=== PATIENT | female | born 1940 | race Caucasian/White ===

== ENCOUNTER 2018-11-30 14:16 | Emergency (ER) | payer BC, MEDICARE ==
[~2018-11-30] VITALS: Ht 160 cm; Wt 110.0 kg
[~2018-11-30 14:16] MED LIST: DICL1TAB2 PO; DILT180C53; LEVO100T PO; LUBI24CA5 PO; PER5325T PO; PRAM0.253 PO; RABE20TA28 PO; ROSU20TA2 PO; TELM80TA9 PO; TIZA2TAB5 PO; TRIA1CAP6 PO; VENL150C2 PO
[2018-11-30 17:04] VITALS: BP 138/66
== END 2018-11-30 17:06 | disposition home or self-care (01) ==
LOC: ER 14:17
DX: M17.12 Unilateral primary osteoarthritis, left knee (principal); M25.552 Pain in left hip; R10.30 Lower abdominal pain, unspecified; I10 Essential (primary) hypertension; K21.9 Gastro-esophageal reflux disease without esophagitis; G89.29 Other chronic pain; F41.9 Anxiety disorder, unspecified; Z98.890 Other specified postprocedural states; Z85.3 Personal history of malignant neoplasm of breast; Z98.41 Cataract extraction status, right eye; Z98.42 Cataract extraction status, left eye; Z90.12 Acquired absence of left breast and nipple; Z98.82 Breast implant status; Z88.1 Allergy status to other antibiotic agents; Z88.8 Allergy status to other drugs, medicaments and biological substances; Z79.899 Other long term (current) drug therapy; W18.39XA Other fall on same level, initial encounter; Y93.89 Activity, other specified; Y92.89 Other specified places as the place of occurrence of the external cause; Y99.8 Other external cause status
CPT/HCPCS: 72192; 73502; 73560; 99284

== ENCOUNTER 2019-02-14 08:09 | Outpatient (CLI) | payer BC, MEDICARE ==
[2019-02-14] VITALS (10 sets, daily range): BP systolic 143–163; BP diastolic 72–91
[~2019-02-14] VITALS: Ht 160 cm; Wt 100.0 kg
[2019-02-14] MEDS ORDERED: regadenoson 0.4mg/5ml syringe IV PRN (09:10)
[2019-02-14] MEDS ORDERED: nitroGLYCERIN 0.4mg SUBLingual tab SL PRN (09:10)
[2019-02-14] MEDS ORDERED: aminophylline 250mg/10ml inj. IV PRN (09:10)
== END 2019-02-14 23:59 | disposition home or self-care (01) ==
LOC: RAD 08:09
PROVIDERS: ATTEND Internal Medicine Cardiovascular Disease
DX: Z01.818 Encounter for other preprocedural examination (principal); R94.39 Abnormal result of other cardiovascular function study; R06.02 Shortness of breath; I10 Essential (primary) hypertension; M19.90 Unspecified osteoarthritis, unspecified site
CPT/HCPCS: 78452; 93017; A9500; J0280; J2785

== ENCOUNTER 2019-02-28 12:54 | Day surgery (SDC) | payer BC, MEDICARE ==
[2019-02-27 15:37] LABS: BASOPHILS # (AUTO) 0.1 X10'3 (0-0.2); BASOPHILS % (AUTO) 1.5 % (0-1); EOSINOPHILS # (AUTO) 0.1 X10'3 (0-0.9); EOSINOPHILS % (AUTO) 2.6 % (0-6); HEMOGLOBIN 12.2 g/dl (12.0-16.0); LYMPHOCYTES # (AUTO) 1.9 X10'3 (1.1-4.8); LYMPHOCYTES % (AUTO) 32.2 % (21-51); MEAN CORPUSCULAR HEMOGLOBIN 29.8 PG (27.0-31.0); MEAN CORPUSCULAR HGB CONC 33.1 g/dL (33.0-36.5); MEAN CORPUSCULAR VOLUME 89.8 FL (78-98); MEAN PLATELET VOLUME 7.3 FL (7.4-10.4); MONOCYTES # (AUTO) 0.4 X10'3 (0-0.9); MONOCYTES % (AUTO) 7.5 % (2-12); NEUTROPHILS # (AUTO) 3.2 X10'3 (1.8-7.7); NEUTROPHILS % (AUTO) 56.2 % (42-75); PLATELET COUNT 308 X10'3 (140-440); RED BLOOD COUNT 4.12 X10'6 (4.20-5.60); RED CELL DISTRIBUTION WIDTH 14.9 % (11.5-14.5); WHITE BLOOD COUNT 5.8 X10'3 (4.5-11.0)
[2019-02-27 15:51] LABS: ALBUMIN 3.8 G/DL (3.4-5.0); ANION GAP 6 (8-16); BLOOD UREA NITROGEN 19 MG/DL (7-18); BUN/CREATININE RATIO 28.8 (6.6-38.0); CALCIUM 9.2 MG/DL (8.5-10.1); CHLORIDE 103 MMOL/L (99-107); CREATININE 0.66 MG/DL (0.40-0.90); GLUCOSE 125 MG/DL (70-104); POTASSIUM 3.8 MMOL/L (3.5-5.1); SODIUM 141 MMOL/L (135-145); TOTAL CARBON DIOXIDE 31.6 MMOL/L (24-32); eGFR 87 ML/MIN
[2019-02-27 15:52] LABS: PARTIAL THROMBOPLASTIN TIME 26 SECONDS (22-32)
[~2019-02-28] VITALS: Ht 160 cm; Wt 45.4 kg
[2019-02-28] VITALS (10 sets, daily range): BP systolic 142–192; BP diastolic 74–88
[2019-02-28] MEDS ORDERED: LORazepam 0.5 MG tablet PO PRN (13:20)
[2019-02-28] MEDS ORDERED: diphenhydrAMINE 25mg capsule PO PRN (13:20)
[2019-02-28] MEDS ORDERED: normal saline 1,000 ML IV SCH (13:20)
[2019-02-28] MEDS ORDERED: nitroGLYCERIN-Tridil 50MG/D5W 250 ML IV ONE (13:35)
[2019-02-28] MEDS ORDERED: midazolam 2 mg/2 ml injection ONE (13:35)
[2019-02-28] MEDS ORDERED: verapamil 2.5 mg/ml inj IV ONE ×2 (13:35→16:29)
[2019-02-28] MEDS ORDERED: LIDOcaine 1% (10mg/ml)w/preservative injection 20ml MDV ONE (13:36)
[2019-02-28] MEDS ORDERED: heparin 1,000unit/ml 10ml vial 10 ML ONE (13:36)
[2019-02-28] MEDS ORDERED: iohexol 350MG/ML 100ml bottle IV ONE (13:36)
[2019-02-28] MEDS ORDERED: iohexol 350 MG/ML 50ML vial IV ONE (13:36)
[2019-02-28] MEDS ORDERED: fentaNYL/PF 50MCG/1 ML 2ML syringe ONE (13:36)
[2019-02-28] MEDS ORDERED: ACET-2119 PO (14:52)
[2019-02-28] MEDS ORDERED: FEBU40TA PO (14:52)
[2019-02-28] MEDS ORDERED: LACT1CAP65 PO (14:52)
[2019-02-28] MEDS ORDERED: LICO1POW PO (14:52)
[2019-02-28] MEDS ORDERED: TELM80TA2 PO (14:52)
[2019-02-28] MEDS ORDERED: DULCOLAX STOOL SOFT PO (14:52)
[2019-02-28] MEDS ORDERED: OMEG1CAP46 PO (14:52)
[2019-02-28] MEDS ORDERED: PRAM0.122 PO (14:52)
[2019-02-28] MEDS ORDERED: MAXI VISION PO (14:52)
[2019-02-28] MEDS ORDERED: ZEAX100P PO (14:52)
[2019-02-28] MEDS ORDERED: VITA400C65 PO (14:52)
[2019-02-28] MEDS ORDERED: RABE20TA18 PO (14:52)
[2019-02-28] MEDS ORDERED: UBID100C16 PO (14:52)
[2019-02-28] MEDS ORDERED: BLAC40CA PO (14:52)
[2019-02-28] MEDS ORDERED: [UNRECOGNIZED DRUG - CODE] PO (14:52)
[2019-02-28] MEDS ORDERED: CALC-729 PO (14:52)
[2019-02-28] MEDS ORDERED: ASCO-261 PO (14:52)
[2019-02-28] MEDS ORDERED: CHOL400T PO (14:52)
[2019-02-28] MEDS ORDERED: ARTHROTEC PO (14:52)
[2019-02-28] MEDS ORDERED: GABA-532 PO (14:53)
[2019-02-28] MEDS ORDERED: oxyCODONE/APAP 5-325mg tablet PO ONE (14:55)
[2019-02-28] MEDS ORDERED: HYDROmorphone 1 mg/ml syringe ONE (16:29)
== END 2019-02-28 20:00 | disposition home or self-care (01) ==
LOC: SSTAY O 12:54
PROVIDERS: ATTEND Internal Medicine Cardiovascular Disease
DX: R94.39 Abnormal result of other cardiovascular function study (principal); I25.10 Atherosclerotic heart disease of native coronary artery without angina pectoris; I10 Essential (primary) hypertension; E78.5 Hyperlipidemia, unspecified; Z79.01 Long term (current) use of anticoagulants; M16.12 Unilateral primary osteoarthritis, left hip; E03.9 Hypothyroidism, unspecified; K21.9 Gastro-esophageal reflux disease without esophagitis; F32.9 Major depressive disorder, single episode, unspecified; Z90.12 Acquired absence of left breast and nipple; Z85.3 Personal history of malignant neoplasm of breast; Z98.890 Other specified postprocedural states; Z79.899 Other long term (current) drug therapy
CPT/HCPCS: 36415; 80048; 85025; 85610; 85730; 93005; 93458; 99152; 99153; C1769; C1894; J1170; J1644; J2001; J2250; J3010; J7030; Q0163; Q9967; A4620; A5120; A6258; J3490

== ENCOUNTER 2022-02-24 16:19 | Emergency (ER) | payer BC, MEDICARE ==
[~2022-02-24] VITALS: Ht 160 cm; Wt 100.0 kg
[~2022-02-24 16:19] MED LIST changes: +ACET-2119 PO; +ARTHROTEC PO; +ASCO-261 PO; +BLAC40CA PO; +CALC-729 PO; +CHOL400T PO; -DICL1TAB2 PO; +DULCOLAX STOOL SOFT PO; +FEBU40TA PO; +GABA-532 PO; +LACT1CAP65 PO; +LICO1POW PO; +MAXI VISION PO; +OMEG1CAP46 PO; +PRAM0.122 PO; -PRAM0.253 PO; +RABE20TA18 PO; -RABE20TA28 PO; +RABE20TA31 PO; +TELM80TA2 PO; +TIZA-189 PO; -TIZA2TAB5 PO; -TRIA1CAP6 PO; +TRIA1CAP88 PO; +UBID100C16 PO; -VENL150C2 PO; +VENL150C4 PO; +VITA-288 PO; +ZEAX100P PO; +[UNRECOGNIZED DRUG - CODE] PO
--- NOTE | 2022-02-24 18:29 | NUR ---
Assumed care of patient after recieving report. Sitting up in chair, states cold like symptoms started on Sunday antd tested positive today for Covid.
[2022-02-24] MEDS ORDERED: BEBTELOVIMAB 175 MG/2 ML VIAL IV ONE (19:10)
[2022-02-24 21:21] VITALS: BP 143/71
== END 2022-02-24 21:22 | disposition home or self-care (01) ==
LOC: ER 16:20
DX: U07.1 COVID-19 (principal); K21.9 Gastro-esophageal reflux disease without esophagitis; I10 Essential (primary) hypertension; G89.29 Other chronic pain; M54.9 Dorsalgia, unspecified; F41.9 Anxiety disorder, unspecified; Z98.890 Other specified postprocedural states; Z90.49 Acquired absence of other specified parts of digestive tract; Z88.1 Allergy status to other antibiotic agents; Z88.8 Allergy status to other drugs, medicaments and biological substances; Z88.6 Allergy status to analgesic agent; Z79.899 Other long term (current) drug therapy; Z79.82 Long term (current) use of aspirin; Z79.1 Long term (current) use of non-steroidal anti-inflammatories (NSAID); Z79.2 Long term (current) use of antibiotics
CPT/HCPCS: 87502; 87503; 87635; 99283; C9803; M0222; Q0222; 99284

== ENCOUNTER 2022-09-21 06:11 | Day surgery (SDC) | payer BC, MEDICARE ==
[2022-09-20 15:44] LABS: BASOPHILS # (AUTO) 0.1 X10'3 (0-0.2); EOSINOPHILS # (AUTO) 0.2 X10'3 (0-0.9); EOSINOPHILS % (AUTO) 4.4 % (0-6); HEMATOCRIT 34.6 % (35.0-45.0); HEMOGLOBIN 11.7 g/dl (12.0-16.0); LYMPHOCYTES # (AUTO) 1.7 X10'3 (1.1-4.8); LYMPHOCYTES % (AUTO) 31.9 % (21-51); MEAN CORPUSCULAR HEMOGLOBIN 30.6 PG (27.0-31.0); MEAN CORPUSCULAR HGB CONC 33.7 g/dL (33.0-36.5); MEAN CORPUSCULAR VOLUME 90.9 FL (78-98); MEAN PLATELET VOLUME 8.1 FL (7.4-10.4); MONOCYTES # (AUTO) 0.5 X10'3 (0-0.9); MONOCYTES % (AUTO) 9.1 % (2-12); NEUTROPHILS # (AUTO) 2.9 X10'3 (1.8-7.7); NEUTROPHILS % (AUTO) 53.6 % (42-75); PLATELET COUNT 207 X10'3 (140-440); RED BLOOD COUNT 3.81 X10'6 (4.20-5.60); RED CELL DISTRIBUTION WIDTH 13.1 % (11.5-14.5); WHITE BLOOD COUNT 5.3 X10'3 (4.5-11.0)
[2022-09-20 15:50] LABS: ALBUMIN 3.8 G/DL (3.4-5.0); ANION GAP 5 (8-16); BLOOD UREA NITROGEN 25 MG/DL (7-18); BUN/CREATININE RATIO 29.1 (10.0-20.0); CALCIUM 9.6 MG/DL (8.5-10.1); CHLORIDE 99 MMOL/L (99-107); CREATININE 0.86 MG/DL (0.40-0.90); GLUCOSE 105 MG/DL (70-104); SODIUM 135 MMOL/L (135-145); TOTAL CARBON DIOXIDE 30.6 MMOL/L (24-32); eGFR 63 ML/MIN
[2022-09-20 15:54] LABS: APTT 27 SECONDS (22-32)
[2022-09-21] VITALS (10 sets, daily range): BP systolic 122–163; BP diastolic 55–84
[~2022-09-21] VITALS: Ht 160 cm; Wt 102.7 kg
[2022-09-21] MEDS ORDERED: LORazepam 0.5 MG tablet PO PRN ×3 (06:35→09:30)
[2022-09-21] MEDS ORDERED: diphenhydrAMINE 25mg capsule PO PRN ×3 (06:35→09:30)
[2022-09-21] MEDS ORDERED: normal saline 1,000 ML IV SCH ×3 (06:35→09:30)
[2022-09-21] MEDS ORDERED: nitroGLYCERIN-Tridil 50MG/D5W 250 ML IV ONE (07:13)
[2022-09-21] MEDS ORDERED: LIDOcaine 1% (10mg/ml) 2ml vial ONE (07:13)
[2022-09-21] MEDS ORDERED: fentaNYL/PF 50MCG/1 ML 2ML syringe ONE (07:14)
[2022-09-21] MEDS ORDERED: verapamil 2.5 mg/ml inj IV ONE (07:14)
[2022-09-21] MEDS ORDERED: heparin 1,000unit/ml 10ml vial 10 ML ONE (07:14)
[2022-09-21] MEDS ORDERED: midazolam 1 mg/ML 2ml injection ONE (07:14)
[2022-09-21] MEDS ORDERED: iohexol 350 MG/ML 50ML vial IV ONE (07:14)
[2022-09-21] MEDS ORDERED: iohexol 350MG/ML 100ml bottle IV ONE (07:14)
[2022-09-21 07:16] LABS: BASOPHILS # (AUTO) 0.1 X10'3 (0-0.2); EOSINOPHILS # (AUTO) 0.2 X10'3 (0-0.9); EOSINOPHILS % (AUTO) 4.2 % (0-6); HEMATOCRIT 36.5 % (35.0-45.0); HEMOGLOBIN 12.3 g/dl (12.0-16.0); LYMPHOCYTES # (AUTO) 1.5 X10'3 (1.1-4.8); LYMPHOCYTES % (AUTO) 26.4 % (21-51); MEAN CORPUSCULAR HEMOGLOBIN 30.9 PG (27.0-31.0); MEAN CORPUSCULAR HGB CONC 33.8 g/dL (33.0-36.5); MEAN CORPUSCULAR VOLUME 91.3 FL (78-98); MONOCYTES # (AUTO) 0.5 X10'3 (0-0.9); MONOCYTES % (AUTO) 8.1 % (2-12); NEUTROPHILS # (AUTO) 3.4 X10'3 (1.8-7.7); NEUTROPHILS % (AUTO) 60.3 % (42-75); PLATELET COUNT 224 X10'3 (140-440); RED CELL DISTRIBUTION WIDTH 13.4 % (11.5-14.5); WHITE BLOOD COUNT 5.7 X10'3 (4.5-11.0)
[2022-09-21 07:27] LABS: APTT 31 SECONDS (22-32)
[2022-09-21 07:32] LABS: ALBUMIN 4.5 G/DL (3.4-5.0); ANION GAP 8 (8-16); BLOOD UREA NITROGEN 33 MG/DL (7-18); BUN/CREATININE RATIO 26.4 (10.0-20.0); CALCIUM 10.1 MG/DL (8.5-10.1); CHLORIDE 94 MMOL/L (99-107); CREATININE 1.25 MG/DL (0.40-0.90); GLUCOSE 105 MG/DL (70-104); POTASSIUM 4.2 MMOL/L (3.5-5.1); SODIUM 133 MMOL/L (135-145); TOTAL CARBON DIOXIDE 30.6 MMOL/L (24-32); eGFR 41 ML/MIN
[2022-09-21] MEDS ORDERED: DOCU-171 PO (08:10)
[2022-09-21] MEDS ORDERED: CELE200C PO (08:10)
[2022-09-21] MEDS ORDERED: DILT360C29 PO (08:10)
[2022-09-21] MEDS ORDERED: HYDR-4069 PO (08:10)
[2022-09-21] MEDS ORDERED: ROSU40TA PO (08:10)
[2022-09-21] MEDS ORDERED: UBID300C3 PO (08:10)
[2022-09-21] MEDS ORDERED: CALC-499 PO (08:10)
[2022-09-21] MEDS ORDERED: OXYC1TAB17 PO (08:10)
[2022-09-21] MEDS ORDERED: [UNRECOGNIZED DRUG - OTHER] EACHEYE (08:10)
[2022-09-21] MEDS ORDERED: [UNRECOGNIZED DRUG - OTHER] PO (08:10)
[2022-09-21] MEDS ORDERED: LYCO1CAP2 PEG (08:10)
[2022-09-21] MEDS ORDERED: ASCO-139 PO (08:10)
[2022-09-21] MEDS ORDERED: VENL150C4 PO (08:10)
[2022-09-21] MEDS ORDERED: LIDOcaine 1% 30ml preserv. free vial ONE (08:40)
[2022-09-21 14:38] LABS: ISTAT HGB ART 11.2 g/dl (12.0-16.0); ISTAT Hct ART 33 %PCV (35-45); ISTAT O2 SATURATION ARTERIAL 98 % (95-98); ISTAT SOURCE ART
[2022-09-22] MEDS ORDERED: SODIUM BICARB 150mEq/D5W 1L 999 ML IV SCH ×2 (09:30)
[2022-09-26 08:08] LABS: ISTAT Hct MIX 32 %PCV (35-45); ISTAT O2 SATURATION MIX VENOUS 65 % (60-80); ISTAT SOURCE VEN
== END 2022-09-21 13:00 | disposition home or self-care (01) ==
LOC: SSTAY O 06:11
PROVIDERS: ATTEND Internal Medicine Cardiovascular Disease
DX: I25.10 Atherosclerotic heart disease of native coronary artery without angina pectoris (principal); E03.9 Hypothyroidism, unspecified; F32.A Depression, unspecified; K21.9 Gastro-esophageal reflux disease without esophagitis; M19.90 Unspecified osteoarthritis, unspecified site; I34.0 Nonrheumatic mitral (valve) insufficiency; I87.2 Venous insufficiency (chronic) (peripheral); I10 Essential (primary) hypertension; E66.9 Obesity, unspecified; Z68.41 Body mass index [BMI] 40.0-44.9, adult; E78.5 Hyperlipidemia, unspecified; Z85.3 Personal history of malignant neoplasm of breast; Z98.41 Cataract extraction status, right eye; Z98.42 Cataract extraction status, left eye; Z98.890 Other specified postprocedural states; Z90.12 Acquired absence of left breast and nipple; Z88.1 Allergy status to other antibiotic agents; Z88.8 Allergy status to other drugs, medicaments and biological substances; Z72.89 Other problems related to lifestyle; Z79.899 Other long term (current) drug therapy; Z79.01 Long term (current) use of anticoagulants
CPT/HCPCS: 36415; 76937; 80048; 82803; 85014; 85025; 85610; 85730; 93005; 93460; 99152; 99153; J1644; J2250; J3010; J3490; J7030; Q0163; Q9967; A4615; A6258; A6402; C1725; C1751; C1894

== ENCOUNTER 2023-12-29 22:29 | Emergency (ER) | payer BC ==
[~2023-12-29] VITALS: Ht 160 cm; Wt 104.1 kg
[~2023-12-29 22:29] MED LIST changes: -ARTHROTEC PO; +ASCO-139 PO; +CALC-499 PO; -CALC-729 PO; +CELE200C PO; -CHOL400T PO; -DILT180C53; +DILT360C29 PO; +DOCU-171 PO; -DULCOLAX STOOL SOFT PO; +HYDR25TA90 PO; -LICO1POW PO; +LYCO1CAP2 PEG; -MAXI VISION PO; +OXYC1TAB17 PO; -PER5325T PO; +RABE-13 PO; -RABE20TA18 PO; -RABE20TA31 PO; -ROSU20TA2 PO; +ROSU40TA PO; -TELM80TA9 PO; +UBID300C3 PO; -VENL150C4 PO; +VENL150C5 PO; -[UNRECOGNIZED DRUG - CODE] PO; +[UNRECOGNIZED DRUG - OTHER] EACHEYE; +[UNRECOGNIZED DRUG - OTHER] PO
[2023-12-29] MEDS ORDERED: CLINDAMYCIN 600mg IN NS 50ML 50 ML IV ONE (23:50)
[2023-12-30] MEDS: dexamethasone sod phosphate 10mg/ml inj IM STA (00:18)
[2023-12-30 00:30] LABS: BASOPHILS % (AUTO) 0.3 % (0-1); EOSINOPHILS # (AUTO) 0.1 X10'3 (0-0.9); EOSINOPHILS % (AUTO) 0.6 % (0-6); HEMATOCRIT 34.1 % (35.0-45.0); HEMOGLOBIN 11.1 g/dl (12.0-16.0); LYMPHOCYTES # (AUTO) 0.8 X10'3 (1.1-4.8); LYMPHOCYTES % (AUTO) 6.7 % (21-51); MEAN CORPUSCULAR HEMOGLOBIN 29.3 PG (27.0-31.0); MEAN CORPUSCULAR HGB CONC 32.4 g/dL (33.0-36.5); MEAN CORPUSCULAR VOLUME 90.3 FL (78-98); MEAN PLATELET VOLUME 8.3 FL (7.4-10.4); MONOCYTES # (AUTO) 1.2 X10'3 (0-0.9); MONOCYTES % (AUTO) 10.4 % (2-12); NEUTROPHILS # (AUTO) 9.4 X10'3 (1.8-7.7); PLATELET COUNT 164 X10'3 (140-440); RED BLOOD COUNT 3.78 X10'6 (4.20-5.60); RED CELL DISTRIBUTION WIDTH 14.6 % (11.5-14.5); WHITE BLOOD COUNT 11.4 X10'3 (4.5-11.0)
[2023-12-30] MEDS: clindamycin 600mg/D5W 50ml 50 ML IV ONE (00:37)
[2023-12-30 00:49] LABS: ALANINE AMINOTRANSFERASE 24 U/L (12-78); ALBUMIN 3.5 G/DL (3.4-5.0); ALBUMIN/GLOBULIN RATIO 0.9 (1.1-1.5); ALKALINE PHOSPHATASE 47 IU/L (46-116); ANION GAP 14 (8-16); ASPARTATE AMINO TRANSFERASE 15 U/L (10-37); BILIRUBIN,TOTAL 0.6 MG/DL (0.1-1.0); BLOOD UREA NITROGEN 14 MG/DL (7-18); BUN/CREATININE RATIO 15.4 (10.0-20.0); C-REACTIVE PROTEIN 17.25 MG/DL (0.0-0.5); CALCIUM 9.5 MG/DL (8.5-10.1); CHLORIDE 100 MMOL/L (99-107); CREATININE 0.91 MG/DL (0.40-0.90); GLUCOSE 131 MG/DL (70-104); POTASSIUM 3.1 MMOL/L (3.5-5.1); SODIUM 141 MMOL/L (135-145); TOTAL PROTEIN 7.4 G/DL (6.4-8.2); eCRCL 40 ML/MIN; eGFR 59 ML/MIN
[2023-12-30] MEDS ORDERED: iohexol 300mg/ml 100ml inj. ONE (01:05)
--- NOTE | 2023-12-30 01:10 | NUR ---
patient to ct scan at this time. given list of patients home medications for medication rec.
[2023-12-30] MEDS ORDERED: CARV-50 PO (01:28)
[2023-12-30] MEDS ORDERED: CALC-854 PO (01:28)
[2023-12-30] MEDS ORDERED: PSYL2WAF (01:28)
[2023-12-30] MEDS ORDERED: DILT120C52 PO (01:28)
[2023-12-30 03:00] VITALS: TEMP 98.5
[2023-12-30] MEDS ORDERED: CLIN150C2 PO (04:36)
[2023-12-30 04:49] VITALS: BP 150/70; PULSE 73; RESP 18; O2SAT 94
== END 2023-12-30 04:51 | disposition home or self-care (01) ==
LOC: ER 22:29
DX: K11.21 Acute sialoadenitis (principal); I10 Essential (primary) hypertension; K21.9 Gastro-esophageal reflux disease without esophagitis; G89.29 Other chronic pain; M54.9 Dorsalgia, unspecified; F41.9 Anxiety disorder, unspecified; Z88.1 Allergy status to other antibiotic agents; Z88.8 Allergy status to other drugs, medicaments and biological substances; Z88.6 Allergy status to analgesic agent; Z79.899 Other long term (current) drug therapy; Z79.2 Long term (current) use of antibiotics; Z98.890 Other specified postprocedural states
CPT/HCPCS: 36415; 70487; 80053; 83605; 84145; 85025; 86140; 87040; 96365; 96372; 99285; J1100; J3490; Q9967; 87077

== ENCOUNTER 2024-01-27 11:26 | Emergency (ER) | payer BC ==
[~2024-01-27] VITALS: Ht 160 cm; Wt 104.1 kg
[~2024-01-27 11:26] MED LIST changes: -ASCO-139 PO; +CALC-854 PO; +CARV-50 PO; +CLIN150C2 PO; +DILT120C52 PO; +PSYL2WAF; -UBID300C3 PO
[2024-01-27 13:46] VITALS: TEMP 97.8
[2024-01-27] MEDS ORDERED: CLIN-97 PO (15:29)
[2024-01-27] MEDS: ketorolac trometh 15mg/ml vial 15 MG/ML ML IV ONE (15:59)
[2024-01-27] MEDS: clindamycin-Cleocin 900mg/D5W 50 ML IV ONE (16:00)
[2024-01-27 16:40] VITALS: BP 116/56; PULSE 60; RESP 16; O2SAT 95
== END 2024-01-27 18:07 | disposition home or self-care (01) ==
LOC: ER 11:27
DX: K11.20 Sialoadenitis, unspecified (principal); K21.9 Gastro-esophageal reflux disease without esophagitis; G89.29 Other chronic pain; I10 Essential (primary) hypertension; Z88.1 Allergy status to other antibiotic agents; Z88.5 Allergy status to narcotic agent; Z88.6 Allergy status to analgesic agent; Z88.8 Allergy status to other drugs, medicaments and biological substances; Z79.899 Other long term (current) drug therapy; Z85.3 Personal history of malignant neoplasm of breast
CPT/HCPCS: 96365; 96375; 99284; J1885; J3490